=== PATIENT | female | born 1955 | race Caucasian/White ===

== ENCOUNTER → 2016-08-03 | Outpatient (CLI) | payer BC ==
[~2016-08-03] MED LIST: ADULT LOW DOSE81 M1 PO; Aldactone PO; BACTRIM,SEPT1 TABLET PO; BYSTOLIC20 MG PO; Bactrim,Septra DS 80 PO; CYCLOBENZAPRINE10 MG PO; DIOVAN320 MG PO; DULOXETINE HCL20 MG PO; GABAPENTIN300 MG PO; HYDROCODON-ACE1 EAC8 PO; Hydrodiuril,Oretic,E PO; IBUPROFEN800 MG PO; LORTAB 7.5-3251 EACH PO; NIFEDIPINE ER90 MG PO; OMEPRAZOLE40 M1 PO; POTASSIUM CHLO10 ME3 PO; PRAVASTATIN SOD40 MG PO; PROMETHAZINE HC25 M1 PO; Percocet 7.5/325,End PO; Phenergan PO; Prevacid PO; Procardia XL,Adalat PO; QUINAPRIL HCL40 MG PO; ROPINIROLE HCL2 MG PO; SPIRONOLACTONE25 MG PO; Skelaxin PO; Ultram PO; ZOLPIDEM TARTRAT5 MG PO
== END | disposition home or self-care (01) ==
DX: R13.10 Dysphagia, unspecified (principal); R05 Cough
CPT/HCPCS: 92611 GN

== ENCOUNTER → 2016-08-15 | Outpatient (CLI) | payer OTHER | END | disposition home or self-care (01) | LOC: CDC 10:59 | DX: Z01.810 Encounter for preprocedural cardiovascular examination (principal); S52.532D Colles' fracture of left radius, subsequent encounter for closed fracture with routine healing | CPT/HCPCS: 93000 ==

== ENCOUNTER 2017-04-24 08:04 | Day surgery (SDC) | payer BC ==
[~2017-04-24] VITALS: Ht 167.6 cm; Wt 83.9 kg
[~2017-04-24 08:04] MED LIST changes: +REQUIP2 MG PO
[2017-04-24 08:56] VITALS: BP 162/77
[2017-04-24] MEDS ORDERED: NORCO 5/3251 TABLET PO (11:10)
[2017-04-24 11:43] VITALS: BP 146/67
[2017-04-24 12:40] VITALS: BP 124/69
== END 2017-04-24 13:00 | disposition home or self-care (01) ==
LOC: SDC 08:04
DX: D17.1 Benign lipomatous neoplasm of skin and subcutaneous tissue of trunk (principal); I10 Essential (primary) hypertension; F41.9 Anxiety disorder, unspecified; K21.9 Gastro-esophageal reflux disease without esophagitis; E78.00 Pure hypercholesterolemia, unspecified; Z80.0 Family history of malignant neoplasm of digestive organs
CPT/HCPCS: 88304; 93005; J0690; J1885; J2250; J2405; J3010

== ENCOUNTER → 2017-09-24 | Outpatient (CLI) | payer BC ==
[~2017-09-24] MED LIST changes: +NORCO 5/3251 TABLET PO
== END | disposition home or self-care (01) ==
LOC: NUC 08:00
DX: K21.9 Gastro-esophageal reflux disease without esophagitis (principal); R10.9 Unspecified abdominal pain
CPT/HCPCS: 78264; A9541

== ENCOUNTER → 2017-12-24 | Outpatient (CLI) | payer BC | END | disposition home or self-care (01) | LOC: CDC 09:00 | DX: Z01.810 Encounter for preprocedural cardiovascular examination (principal); G89.4 Chronic pain syndrome; I49.8 Other specified cardiac arrhythmias | CPT/HCPCS: 93000 ==